=== PATIENT | female | born 1970 | race Caucasian/White ===

== ENCOUNTER → 2019-05-14 11:14 | Outpatient (CLI) | payer BC, SELFPAY ==
--- NOTE | 2019-05-14 12:38 | PM.TREADMILL ---
Cardiac Stress Test Report Referral & Results Date Patient Seen: 05/14/19 Requesting provider: My Leonardo Indication: Chest pain Rest ECG: Unremarkable Procedure Note: Today following both written and verbal informed consent, the patient was exercised according to a standard Lei protocol. The patient exercised for a total of 4 minutes 21 seconds achieving a maximum heart rate of 168. Patient's maximum systolic blood pressure was 140. This was an estimated 7.0 MET's. There are no ST-T segment changes Normal blood pressure response the patient quickly tachycardic and remained tachycardic willing to recovery Functional week impairment rates about 30% on the sedentary scale Impression: No evidence of ischemia Tachycardic with activity as above Limited exercise capacity as above Please note: Actual ECG tracings can be found in the PACS system.
== END ==
PROVIDERS: PCP Nurse Practitioner; Visit Provider Nurse Practitioner
DX: R07.89 Other chest pain (principal); R00.0 Tachycardia, unspecified
CPT/HCPCS: 93016; 93017; 93018

== ENCOUNTER → 2020-04-09 14:17 | Outpatient (CLI) | payer OTHER, SELFPAY ==
[2020-04-09 16:22] LABS: TSH w/ Reflex to FT4 1.39 uIU/mL (0.47-4.68)
== END ==
PROVIDERS: PCP Nurse Practitioner; Referring Provider Student in an Organized Health Care Education/Training Program; Visit Provider Student in an Organized Health Care Education/Training Program
DX: R10.9 Unspecified abdominal pain (principal); R93.5 Abnormal findings on diagnostic imaging of other abdominal regions, including retroperitoneum; R19.7 Diarrhea, unspecified
CPT/HCPCS: 36415; 84443

== ENCOUNTER → 2020-07-01 08:35 | Outpatient (CLI) | payer OTHER, SELFPAY ==
[2020-07-01 10:29] LABS: COVID19 -Nasal RAPID Negative (Negative)
== END ==
PROVIDERS: PCP Nurse Practitioner; Visit Provider Physician Assistant
DX: Z11.59 Encounter for screening for other viral diseases (principal)
CPT/HCPCS: 87635

== ENCOUNTER → 2021-02-19 12:14 | Outpatient (CLI) | payer OTHER, SELFPAY ==
--- NOTE | 2021-02-19 | DI.RAD.S_ITS ---
PROCEDURE: XR FOOT RT MIN 3V INDICATIONS: right foot pain TECHNIQUE: 3 views of the foot were acquired. COMPARISON: None. FINDINGS: Bones: No acute fracture. Plantar calcaneal spur Mild 1st MTP joint degeneration. Soft tissues: No tibiotalar joint effusion. Achilles tendon appears normal. IMPRESSION: Chronic degenerative changes as above. Dictated by: Eladio Ballard M.D. on 02/19/2021 at 14:33 Approved by: Eladio Ballard M.D. on 02/19/2021 at 14:35
== END ==
LOC: RAD 12:15
PROVIDERS: PCP Nurse Practitioner; Referring Provider Pain Medicine Pain Medicine; Visit Provider Pain Medicine Pain Medicine
DX: M79.671 Pain in right foot (principal); M77.31 Calcaneal spur, right foot
CPT/HCPCS: 73630

== ENCOUNTER → 2022-02-23 07:21 | Outpatient (CLI) | payer OTHER, SELFPAY ==
--- NOTE | 2022-02-23 07:23 | DI.RAD.S_ITS ---
PROCEDURE: XR LUMBAR SPINE MIN 4V INDICATIONS: chronic low back pain TECHNIQUE: 5 views of the lumbar spine were acquired, including bilateral oblique views. COMPARISON: None. FINDINGS: Bones: 5 nonrib-bearing vertebrae are present. There is normal bony alignment. No vertebral body compression fractures. No suspicious bony lesions. The disc heights are well preserved. Lower lumbar spine facet arthropathy is seen. Soft tissues: Overlying bowel gas pattern is normal. No suspicious soft tissue calcifications. Oblique images: No pars defects. IMPRESSION: Normal plain films for age, with mild lower lumbar spine facet arthropathy. If it would be helpful for clinical management decision making, please consider a dedicated, scheduled lumbar spine MRI for further evaluation (assuming that there is no contraindication). Dictated by: Ever Murray M.D. on 02/23/2022 at 9:58 Approved by: Ever Murray M.D. on 02/23/2022 at 10:02
[2022-02-23 08:08] LABS: Add Manual Diff / Slide Review NO; Basophils Absolute Auto 100 /uL (0-100); Basophils Percent Auto 0.7 % (0-2); Eosinophils Absolute Auto 200 /uL (0-450); Eosinophils Percent Auto 2.1 % (2-4); Hematocrit 38.9 % (36-46); Lymphocytes Absolute Auto 2600 /uL (1100-4500); Lymphocytes Percent Auto 33.7 % (25-40); Mean Corpuscular HGB Conc 33.5 % (30-36); Mean Corpuscular Hemoglobin 30.3 PG (26-34); Mean Corpuscular Volume 90.6 fL (80-100); Monocytes Absolute Auto 500 /uL (0-900); Monocytes Percent Auto 7.1 % (3-14); Neutrophils Absolute Auto 4300 /uL (1500-7000); Neutrophils Percent Auto 56.4 % (50-75); Platelet Count 335 X10^3/uL (150-400); Red Blood Cell Count 4.29 X10^6/uL (4.0-5.2); Red Cell Distribution Width 13.1 % (11.6-14.8); White Blood Cell Count 7.6 X10^3/uL (4.5-11.0)
[2022-02-23 08:40] LABS: Alanine Aminotransferase 16 IU/L (<35); Albumin Globulin Ratio 1.4 (1.0-2.8); Alkaline Phosphatase 79 U/L (38-126); Aspartate Aminotransferase 25 IU/L (14-36); BUN Creatinine Ratio 22.8 (6-22); Bilirubin Total 0.3 mg/dL (0.2-1.3); Blood Urea Nitrogen 13 mg/dL (7-17); Calcium 8.9 mg/dL (8.4-10.2); Carbon Dioxide 30 mmol/L (22-32); Chloride 104 mmol/L (98-107); Cholesterol 217 mg/dL (140-199); Estimated Glomerular Filt Rate > 60 mL/min (>60); Globulin 2.8 g/dL (1.7-4.1); Glucose 98 mg/dL (70-100); HDL Cholesterol 57 mg/dL (40-60); HEMOLYSIS < 15 (0-50); LDL Cholesterol Calculated 144 mg/dL (<100); Potassium 4.3 mmol/L (3.4-5.1); Sodium 140 mmol/L (137-145); Total Protein 6.8 g/dL (6.3-8.2); Triglycerides 78 mg/dL (35-150)
[2022-02-23 08:58] LABS: TSH w/ Reflex to FT4 1.93 uIU/mL (0.47-4.68)
[2022-02-24 20:04] LABS: Hep C Virus Ab w/Reflex Quant NEGATIVE s/c (NEGATIVE)
[2022-02-25 21:52] LABS: Estrogen 111 pg/mL (.)
[2022-03-02 17:56] LABS: Free Progesterone 2.1 ng/dL (.); Progesterone, Serum 71 ng/dL (.)
== END ==
PROVIDERS: PCP Family Medicine; Referring Provider Family Medicine; Visit Provider Family Medicine
DX: C53.9 Malignant neoplasm of cervix uteri, unspecified (principal); M54.50 Low back pain, unspecified; K57.90 Diverticulosis of intestine, part unspecified, without perforation or abscess without bleeding; M06.00 Rheumatoid arthritis without rheumatoid factor, unspecified site; G89.29 Other chronic pain; Z90.710 Acquired absence of both cervix and uterus
CPT/HCPCS: 36415; 72110; 80053; 80061; 82672; 84144; 84443; 84999; 85025; 86803

== ENCOUNTER → 2022-03-02 08:58 | Outpatient (CLI) | payer OTHER, SELFPAY ==
--- NOTE | 2022-03-02 08:59 | DI.US.S_ITS ---
PROCEDURE: US PELVIC COMPLETE INDICATIONS: abnormal ovary, s/p cervical cancer and partial hysterectomy TECHNIQUE: Real-time scanning was performed of the pelvic organs, with image documentation. Additional endovaginal scanning was necessary due to incomplete visualization of the adnexal and endometrial structures by transabdominal scanning. COMPARISON: None. FINDINGS: Uterus: Uterus is surgically absent. No gross abnormality is seen in vaginal cuff region. Ovaries: Right ovary is not visualized. 3.1 x 1.3 x 1 cm hypoechoic and solid appearing structure in left adnexa is seen which may represent left ovary and show no gross abnormality. IMPRESSION: 1. Prior hysterectomy, no gross abnormality is seen in vaginal cuff region. 2. Right ovary is not visualized. Possible left ovary as above and show no gross abnormality. If indicated, MRI of pelvis can be done for further evaluation . We strive to produce accurate, complete, and clear reports of imaging services. To assist us in improving patient care, this report was composed using standard report templates and voice recognition software. Therefore, it may contain abnormal punctuation, insertions and/or omissions. Occasional wrong-word or sound-alike substitutions may occur. Though we review the report and make efforts to correct it, we do recommend that the report be read carefully in proper context to recognize any text inaccuracies. Dictated by: Cornel Martinez M.D. on 03/02/2022 at 11:31 Approved by: Cornel Martinez M.D. on 03/02/2022 at 11:36
== END ==
LOC: US 08:59
PROVIDERS: PCP Family Medicine; Referring Provider Family Medicine; Visit Provider Family Medicine
DX: Q50.39 Other congenital malformation of ovary (principal); Z85.41 Personal history of malignant neoplasm of cervix uteri
CPT/HCPCS: 76830; 76856

== ENCOUNTER → 2023-09-05 17:16 | Outpatient (CLI) | payer OTHER, SELFPAY ==
[2023-09-05 17:57] LABS: Appearance Urine UA CLEAR; Bilirubin Urine UA NEGATIVE (NEGATIVE); Color Urine UA YELLOW; Glucose Urine UA NEGATIVE (Negative); Ketones Urine UA 3+ (NEGATIVE); Leukocyte Esterase Urine UA NEGATIVE (NEGATIVE); Nitrite Urine UA POSITIVE (Negative); Occult Blood Urine UA 2+ (Negative); Protein Urine UA NEGATIVE (Negative); Specific Gravity Urine UA 1.025 (1.000-1.035); Urobilinogen Urine UA 0.2 E.U./dL (0.2); pH Urine UA 5.5 (4.5-8.0)
[2023-09-05 18:07] LABS: Bacteria Urine Many (>30); Culture Indicated Urine Specimen Cultured; Mucus Urine 2+ (Negative); RBC Urine 0-1/HPF (0-5/HPF); Squamous Epithelial Cell Urine 1-5 /HPF (0-5/HPF); Urine Volume 10mL (spun); WBC Urine 0-1/HPF (0-5/HPF)
[2023-09-05 18:09] LABS: Add Manual Diff / Slide Review NO; Basophils Absolute Auto 0 /uL (0-100); Basophils Percent Auto 0.4 % (0-2); Eosinophils Absolute Auto 100 /uL (0-450); Eosinophils Percent Auto 1.3 % (2-4); Hematocrit 41.4 % (36-46); Hemoglobin 13.9 g/dL (12.0-16.0); Lymphocytes Absolute Auto 3000 /uL (1100-4500); Lymphocytes Percent Auto 35.3 % (25-40); Mean Corpuscular HGB Conc 33.6 % (30-36); Mean Corpuscular Hemoglobin 30.6 PG (26-34); Mean Corpuscular Volume 91.1 fL (80-100); Monocytes Absolute Auto 400 /uL (0-900); Monocytes Percent Auto 5.2 % (3-14); Neutrophils Absolute Auto 5000 /uL (1500-7000); Neutrophils Percent Auto 57.8 % (50-75); Platelet Count 307 X10^3/uL (150-400); Red Blood Cell Count 4.54 X10^6/uL (4.0-5.2); White Blood Cell Count 8.6 X10^3/uL (4.5-11.0)
[2023-09-05 18:27] LABS: HEMOLYSIS < 15 (0-50); Iron 102 ug/dL (37-170)
[2023-09-05 18:29] LABS: Alanine Aminotransferase 15 IU/L (<35); Albumin 4.3 g/dL (3.5-5.0); Albumin Globulin Ratio 1.3 (1.0-2.8); Alkaline Phosphatase 73 U/L (38-126); Aspartate Aminotransferase 25 IU/L (14-36); BUN Creatinine Ratio 27.1 (6-22); Bilirubin Total 0.6 mg/dL (0.2-1.3); Blood Urea Nitrogen 13 mg/dL (7-17); Calcium 9.2 mg/dL (8.4-10.2); Carbon Dioxide 26 mmol/L (22-32); Chloride 103 mmol/L (98-107); Estimated Glomerular Filt Rate > 60 mL/min (>60); Globulin 3.4 g/dL (1.7-4.1); Glucose 83 mg/dL (70-100); HEMOLYSIS < 15 (0-50); Potassium 4.2 mmol/L (3.4-5.1); Sodium 139 mmol/L (137-145); Total Protein 7.7 g/dL (6.3-8.2)
[2023-09-05 18:39] LABS: Percent Iron Saturation 35 % (15-50); Total Iron Binding Capacity 294 ug/dL (265-497); Transferrin 271 mg/dL (206-381)
[2023-09-05 18:45] LABS: Vitamin D 25 Hydroxy (D3) < 12.8 ng/mL (30.0-100.0)
[2023-09-05 19:02] LABS: Ferritin 47 ng/mL (11-264); TSH w/ Reflex to FT4 1.56 uIU/mL (0.47-4.68)
[2023-09-05 19:16] LABS: Vitamin B12 672 pg/mL (239-931)
[2023-09-07 18:53] LABS: Hep C Virus Ab w/Reflex Quant NEGATIVE s/c (NEGATIVE)
== END ==
PROVIDERS: PCP Family Medicine; Referring Provider Physician Assistant; Visit Provider Physician Assistant
DX: K74.60 Unspecified cirrhosis of liver (principal); R10.84 Generalized abdominal pain; R11.2 Nausea with vomiting, unspecified; R63.4 Abnormal weight loss; E55.9 Vitamin D deficiency, unspecified; E53.8 Deficiency of other specified B group vitamins; R53.83 Other fatigue; Z11.59 Encounter for screening for other viral diseases
CPT/HCPCS: 36415; 80053; 81001; 82306; 82607; 82728; 83540; 83550; 84443; 85025; 86803; 87077; 87086; 87186

== ENCOUNTER → 2023-09-18 15:00 | Outpatient (CLI) | payer OTHER, SELFPAY ==
--- NOTE | 2023-09-18 15:01 | DI.US.S_ITS ---
PROCEDURE: US ABDOMEN COMPLETE INDICATIONS: WEIGHT LOSS; NAUSEA/VOMITING; ABDOMINAL PAIN TECHNIQUE: Real-time scanning was performed of the abdominal and retroperitoneal organs, with image documentation. COMPARISON: None. FINDINGS: Liver: Liver is normal in size and homogeneous in echotexture. Gallbladder: Sonolucent without evidence cholelithiasis, gallbladder wall thickening or pericholecystic fluid. No sonographic Bishop sign. Biliary ducts: Intrahepatic bile ducts are non-dilated. Extrahepatic bile duct caliber measures 4.7 mm. Normal is 6-7 mm or less in diameter, or 10 mm or less post-cholecystectomy. Pancreas: Visualized portions of the pancreas are sonographically normal. Spleen: Spleen is normal in size and homogeneous in echotexture. Kidneys: Kidneys are normal in size and echotexture. Mild right renal pyloric iliacus without rachel hydronephrosis. Multiple left renal simple cysts measure up to 5 mm Aorta: Visualized aorta is normal in caliber at less than 3 cm. Iliacs: Proximal common iliac arteries are normal in caliber at less than 2.5 cm. IVC: Intrahepatic inferior vena cava is patent. Miscellaneous: No free abdominal fluid. IMPRESSION: Mildly prominent right renal collecting system without gross hydronephrosis or shadowing calculi Approved by: Diego Leyva M.D. on 09/18/2023 at 19:50
--- NOTE | 2023-09-18 15:01 | DI.US.S_ITS ---
PROCEDURE: US PELVIC COMPLETE INDICATIONS: FOLLOW UP LEFT ADNEXA OVARY VERSUS OTHER. HYSTERECTOMY. TECHNIQUE: Real-time scanning was performed of the pelvic organs, with image documentation. Additional endovaginal scanning was necessary due to incomplete visualization of the adnexal and endometrial structures by transabdominal scanning. COMPARISON: [facility], , US PELVIC COMPLETE, 03/02/2022, 9:05. FINDINGS: Uterus: Status post hysterectomy Ovaries: Neither ovary is visualized on this examination. On the prior study, there was a questionable left ovary seen in the region of the left adnexa. No suspicious pelvic lesions identified. Other: No pathologic free abdominal or pelvic fluid. IMPRESSION: Status post hysterectomy. The ovaries are not seen on either side. Previously described possible left ovary is not identified on today's examination. Consider further evaluation with pelvic MRI to confirm. We strive to produce accurate, complete, and clear reports of imaging services. To assist us in improving patient care, this report was composed using standard report templates and voice recognition software. Therefore, it may contain abnormal punctuation, insertions and/or omissions. Occasional wrong-word or sound-alike substitutions may occur. Though we review the report and make efforts to correct it, we do recommend that the report be read carefully in proper context to recognize any text inaccuracies. Dictated by: Dylan Mcnulty M.D. on 09/18/2023 at 18:32 Approved by: Dylan Mcnulty M.D. on 09/18/2023 at 18:38
== END ==
LOC: US 15:01
PROVIDERS: PCP Family Medicine; Referring Provider Physician Assistant; Visit Provider Physician Assistant
DX: R10.84 Generalized abdominal pain (principal); R11.2 Nausea with vomiting, unspecified; R63.4 Abnormal weight loss; K74.60 Unspecified cirrhosis of liver; Z90.710 Acquired absence of both cervix and uterus
CPT/HCPCS: 76700; 76830; 76856

== ENCOUNTER → 2023-09-19 15:15 | Outpatient (CLI) | payer OTHER, SELFPAY ==
[2023-09-19 19:41] LABS: Bacteria Urine Occasional (0-1); Culture Indicated Urine Cult Not Indicated; RBC Urine 0-1/HPF (0-5/HPF); Squamous Epithelial Cell Urine 0-1 /HPF (0-5/HPF); Urine Volume 10mL (spun); WBC Urine 0-1/HPF (0-5/HPF)
== END ==
PROVIDERS: PCP Family Medicine; Visit Provider Physician Assistant
DX: N39.0 Urinary tract infection, site not specified (principal)
CPT/HCPCS: 81015

== ENCOUNTER 2023-11-06 07:27 | Day surgery (SDC) | payer OTHER, SELFPAY ==
[2023-11-06] VITALS (8 sets, daily range): BP systolic 89–128; BP diastolic 54–88; PULSE 76–88; RESP 10–17; TEMP 36.1–36.6; O2SAT 97–100
--- NOTE | 2023-11-06 | PATH_ITS ---
[facility] Accession Number: [id number] No. of containers..04 Tissue . 01 Material submitted: . PART A: duodenum - DUODENUM PART B: gastrointestinal site - ANTRUM PART C: esophagus, E-G Junction - GE JUNCTION PART D: colon - TRANSVERSE COLON . 01 Diagnosis: A. DUODENUM, BIOPSY: Duodenal mucosa with no diagnostic abnormality. Negative for active inflammation, features of sprue, dysplasia, or malignancy. . B. STOMACH, ANTRUM, BIOPSY: Antral mucosa with mild chronic gastritis. Negative for Helicobacter by immunohistochemistry. Negative for intestinal metaplasia. Negative for dysplasia and malignancy. . C. GASTROESOPHAGEAL JUNCTION, BIOPSY: Squamocolumnar junctional mucosa with specialized intestinal metaplasia, consistent with Friedman's esophagus. Negative for dysplasia and malignancy. . D. TRANSVERSE COLON, BIOPSY: Consistent with inflammatory polyp. Negative for dysplasia and malignancy. [facility] 11/13/2023 [facility]2 Local . 01 Electronically signed: . Afua Arana MD, Pathologist NPI- [id number] . 01 Gross description: . Part A: DUODENUM: Received in formalin are 4 fragment(s) of roldan, soft tissue measuring 0.1 x 0.1 x 0.1 cm to 0.3 x 0.3 x 0.2 cm submitted entirely in 1 cassette(s) Part B: ANTRUM: Received in formalin are 3 fragment(s) of roldan, soft tissue measuring 0.1 x 0.1 x 0.1 cm to 0.4 x 0.2 x 0.2 cm submitted entirely in 1 cassette(s) Part C: GE JUNCTION: Received in formalin are 3 fragment(s) of roldan, soft tissue measuring 0.1 x 0.1 x 0.1 cm to 0.3 x 0.3 x 0.2 cm submitted entirely in 1 cassette(s) Part D: TRANSVERSE COLON: Received in formalin is 1 fragment(s) of roldan, soft tissue measuring 0.6 x 0.3 x 0.3 cm submitted entirely in 1 cassette(s) /DB 11/08/2023 1859 Local . 01 Microscopic: . B. An immunohistochemical stain was performed to evaluate for Helicobacter organisms and is negative. The control stain showed appropriate reactivity. . * This test was developed and its performance characteristics determined by [facility]. It has not been cleared or approved by the U.S. Food and Drug Administration. The FDA has determined that such clearance or approval is not necessary. This test is used for clinical purposes. It should not be regarded as investigational or for research. . 01 Pathologist provided ICD-10: K22.70 . 01 CPT . 855257, 643772, 486057, 097998, [id number] Specimen Comment: A courtesy copy of this report has been sent to [phone] Performed at: 01 [facility] [address] [place] [address], [place], [place] [id number] MD Brendan Carmichael MD Phone: [phone]
[2023-11-06] MEDS: LACTATED RINGERS 1,000 ML 42 ML IV (08:18)
--- NOTE | 2023-11-06 08:51 | P.HP_ITS ---
History of Present Illness History of Present Illness Date Patient Seen: 11/06/23 Time Patient Seen: 08:51 Chief complaint: EGD & Colonoscopy Narrative: Jacquie is a 53-year-old woman who presents with dysphagia and family history of colon cancer. See office note from September for details. [facility] Medical History Osteoarthritis Sleep apnea Asthma Restless leg syndrome Migraines (~1982) Osteopenia (~2018) Foot pain (~2019) Fibromyalgia (~2020) Ankle pain (~2019) Anemia (~1991) Liver disease Irritable bowel syndrome GERD (gastroesophageal reflux disease) Gastric ulcer (~1982) Colon polyps (~2020) Cirrhosis (~2019) Cervical cancer (~1987) Chronic low back pain (~1999) Seronegative rheumatoid arthritis Diverticulosis (~2020) Surgical History Anesthesia History of hysterectomy for cancer (~1999) Family History Father Cancer Mother Cancer Social History Smoking Status: Never smoker alcohol intake: never Meds Home Medications and Allergies Home Medications Medication Instructions Recorded Confirmed Type cholecalciferol (vitamin D3) 25 25 mcg PO DAILY 09/19/23 11/06/23 History mcg (1,000 unit) capsule omeprazole 40 mg capsule,delayed 40 mg PO DAILY #30 caps 09/19/23 11/06/23 Rx release sucralfate 1 gram tablet (Carafate) 1 g PO QACHS #120 tabs 09/19/23 11/06/23 Rx gabapentin 300 mg capsule 300 mg PO BEDTIME #90 caps 10/10/23 11/06/23 Rx methocarbamol 500 mg tablet 500 mg PO TID PRN muscle spasm #60 10/10/23 11/06/23 Rx tabs sumatriptan succinate 100 mg 100 mg PO PRN PRN migraine 10/10/23 11/06/23 Rx tablet (Imitrex) headache #30 tabs amitriptyline 10 mg tablet 10 mg PO BEDTIME #90 tabs 10/13/23 11/06/23 Rx pramipexole 0.25 mg tablet 0.25 mg PO BEDTIME #90 tabs 10/13/23 11/06/23 Rx peg 3350-sod sulf,knenw-dkr-nee 1,000 ml PO DIRECTED #2,000 mL 10/23/23 Rx 178.7-7.3-0.5-1.12-0.9 gram oral soln (Suflave) Allergies Allergy/AdvReac Type Severity Reaction Status Date / Time Sulfa (Sulfonamide Allergy Severe Swelling Verified 11/06/23 07:57 Antibiotics) of Lip/Tongue/Throat nitrofurantoin AdvReac Intermediate Nausea Verified 11/06/23 07:57 Exam Vital Signs (past 8 hours): - 11/06/23 07:58 Temperature 97.8 F Pulse Rate 79 Respiratory Rate 16 Blood Pressure 123/77 Pulse Oximetry 97 Oxygen Delivery Method Room Air Oxygen Delivery Method Room Air Const General: No acute distress Resp Effort & Inspection: normal respiratory effort Assessment & Plan Assessment and plan (1) Family history of colon cancer: Status: Acute (2) Personal history of colonic polyps: Status: Acute (3) Dysphagia: Qualifiers: Dysphagia type: esophageal phase Qualified Code(s): R13.19 - Other dysphagia Status: Acute Plan Reviewed the risks and benefits of EGD and colonoscopy and she would like to proceed.
--- NOTE | 2023-11-06 09:27 | PM.OP.EC ---
Operative Date/Time/Diagnoses Date of procedure: 11/06/23 Time of procedure: 09:27 Pre-op diagnosis: Dysphagia and family history of colon cancer Post-op diagnosis: same Procedure & Clinicians Study performed: EGD and colonoscopy Same procedure as scheduled: Yes Surgeon: Fredrick Nieves Procedure Notes Procedure in detail: Surgeon: Fredrick Nieves MD Anesthesia: Lyndsay Smith CRNA Procedure in detail: A timeout was performed. A bite blocked was placed and monitors were attached to the patient. The patient was positioned in the left lateral decubitus position. Sedation was administered. Once the patient was sedated the endoscope was inserted through the bite block and passed through the esophagus and stomach and into the duodenum. There was mild duodenitis and random biopsies were taken from the duodenum with cold forceps. We then withdrew the scope into the stomach. There was moderate antritis and random biopsies were taken from the antrum with cold forceps. The endoscope was retroflexed and no hiatal hernia was seen. The endoscope was straightned and withdrawn into the esophagus. There was moderate inflammation at the GE junction and biopsies were taken with cold forceps from the GE junction. EGD findings: Mild duodenitis, moderate antritis and moderate esophagitis at the GE junction Next we repositioned the patient for a colonoscopy. A digital rectal exam was performed and was normal. The colonoscope was inserted and advanced to the cecum. The appendiceal orifice was identified and photographed. The scope was slowly withdrawn over greater than 6 minutes. There was a 7 mm polyp in the transverse colon removed with a cold snare. The scope was retroflexed in the rectum and no other abnormalities were found. Colonoscopy findings: 7 mm polyp in the transverse colon Total procedural EBL: 10 mL Scope withdrawal time: 9 minutes Sedation minutes: 23 minutes Post-procedure Disposition: PACU
== END 2023-11-06 10:22 | disposition home or self-care (01) ==
PROVIDERS: PCP Family Medicine; Referring Provider Surgery; Visit Provider Surgery
PROC: 0DJ08ZZ Inspection of Upper Intestinal Tract, Via Natural or Artificial Opening Endoscopic (ICD-10-PCS; CPT 43235; principal; 2023-11-06 08:45)
PROC: 0DJD8ZZ Inspection of Lower Intestinal Tract, Via Natural or Artificial Opening Endoscopic (ICD-10-PCS; CPT 45378; 2023-11-06 08:45)
DX: Z12.11 Encounter for screening for malignant neoplasm of colon (principal); Z80.0 Family history of malignant neoplasm of digestive organs; R13.10 Dysphagia, unspecified; K20.90 Esophagitis, unspecified without bleeding; K29.50 Unspecified chronic gastritis without bleeding; K29.80 Duodenitis without bleeding; K22.70 Barrett's esophagus without dysplasia; K63.5 Polyp of colon
CPT/HCPCS: 45385; 43239; J2704

== ENCOUNTER → 2023-12-05 15:45 | Outpatient (CLI) | payer OTHER, SELFPAY | PROVIDERS: PCP Family Medicine; Visit Provider Family Medicine | DX: R30.0 Dysuria (principal) | CPT/HCPCS: 87086 ==

== ENCOUNTER → 2023-12-05 16:33 | Outpatient (CLI) | payer OTHER, SELFPAY ==
[2023-12-05 17:19] LABS: Add Manual Diff / Slide Review NO; Basophils Absolute Auto 0 /uL (0-100); Basophils Percent Auto 0.5 % (0-2); Eosinophils Absolute Auto 100 /uL (0-450); Eosinophils Percent Auto 1.1 % (2-4); Hematocrit 37.3 % (36-46); Hemoglobin 12.9 g/dL (12.0-16.0); Lymphocytes Absolute Auto 2600 /uL (1100-4500); Mean Corpuscular HGB Conc 34.6 % (30-36); Mean Corpuscular Volume 92.3 fL (80-100); Monocytes Absolute Auto 400 /uL (0-900); Monocytes Percent Auto 5.9 % (3-14); Neutrophils Absolute Auto 4100 /uL (1500-7000); Neutrophils Percent Auto 56.5 % (50-75); Platelet Count 306 X10^3/uL (150-400); Red Blood Cell Count 4.04 X10^6/uL (4.0-5.2); White Blood Cell Count 7.3 X10^3/uL (4.5-11.0)
[2023-12-05 17:54] LABS: Alanine Aminotransferase 13 IU/L (<35); Albumin 4.3 g/dL (3.5-5.0); Albumin Globulin Ratio 1.4 (1.0-2.8); Alkaline Phosphatase 66 U/L (38-126); Aspartate Aminotransferase 22 IU/L (14-36); BUN Creatinine Ratio 18.8 (6-22); Bilirubin Total 0.4 mg/dL (0.2-1.3); Blood Urea Nitrogen 13 mg/dL (7-17); C-Reactive Protein Quant 0.7 mg/dL (<1.0); Calcium 9.3 mg/dL (8.4-10.2); Carbon Dioxide 32 mmol/L (22-32); Chloride 106 mmol/L (98-107); Estimated Glomerular Filt Rate > 60 mL/min (>60); Glucose 90 mg/dL (70-100); HEMOLYSIS < 15 (0-50); Potassium 4.2 mmol/L (3.4-5.1); Sodium 142 mmol/L (137-145); Total Protein 7.3 g/dL (6.3-8.2)
[2023-12-05 18:41] LABS: Erythrocyte Sedimentation Rate 25 MM/HR (0-20)
[2023-12-05 18:51] LABS: Vitamin D 25 Hydroxy (D3) 15.7 ng/mL (30.0-100.0)
== END ==
PROVIDERS: PCP Family Medicine; Referring Provider Family Medicine; Visit Provider Family Medicine
DX: K22.70 Barrett's esophagus without dysplasia (principal); R13.10 Dysphagia, unspecified; E55.9 Vitamin D deficiency, unspecified; M79.7 Fibromyalgia; R30.0 Dysuria
CPT/HCPCS: 36415; 80053; 82306; 85025; 85651; 86038; 86140; 87086

== ENCOUNTER → 2023-12-20 09:27 | Outpatient (CLI) | payer OTHER, SELFPAY ==
--- NOTE | 2023-12-20 09:28 | DI.RAD.S_ITS ---
PROCEDURE: FL BARIUM SWALLOW W SPEECH INDICATIONS: Dysphagia, history of barretts esophagus COMPARISON: None. TECHNIQUE: Examination was conducted in conjunction with speech pathology per standard protocol. In the lateral projection, filming was performed of the patient swallowing. AP projection filming may also be performed with patient swallowing. COMPARISON: FINDINGS: Function: The oral preparatory phase appears normal, with proper containment. The subsequent oral propulsive phase, pharyngeal phase, and esophageal phase of swallowing also appear normal with all proffered substances. No laryngotracheal penetration or aspiration. No pathologic vallecular pooling. Morphology: No cricopharyngeal bar is identified. No cervical esophageal webs. No Zenker's diverticulum. No strictures. Calibrated barium tablet passes through the esophagus. Minimal delay at the aortic arch and distal esophagus. No esophageal dysmotility identified in the upright position. IMPRESSION: 1. No aspiration or laryngotracheal penetration. Please see separately dictated speech pathologist's report. 2. No significant delay of passage of the barium tablet. No gross esophageal dysmotility in the upright position. Dictated by: Arthur Schmitz M.D. on 12/20/2023 at 10:32 Approved by: Arthur Schmitz M.D. on 12/20/2023 at 10:34
--- NOTE | 2023-12-20 12:30 | ST.SWALLOW ---
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 Mariee. Pt had recently undergone EGD () with results indicating mild duodenitis, moderate antrisis and moderate esophagitis at the GE junction . Her PMH included Friedman's esophagus, GERD. Pt described difficulty swallowing anything other than soups and liquids. She reported that solid foods with get stuck and she regurgitates undigested foods. Additionally, she noted if she tries to wash the stuck food down with water, she will regurgitate the water with the solid. She described her emesis as greenish with bile and solid foods. She reported her gall bladder was full of sludge. Subjective Observations Pt appeared to be anxious during the MBSS. She was seated in the fluoroscopy chair with directions and procedures described for her. She stated she had a test previously that required barium and thought she would vomit during the assessment. Patient Positioning Position View Lat-A/P Imaging Lateral View Textures Administered Trials Presented Thin Liquid via Spoon (IDDSI 0 ),Thin Liquid via Cup (IDDSI 0 ),Extremely Thick Liquid via Spoon (IDDSI 4),Regular (IDDSI 7) Barium Tablet Yes The IDDSI Framework Protocol: IDDSI.1 Oral Impairment Source: The Modified Barium Swallow Impairment Profile (MBSImP??) Lip Closure No labial escape Tongue Control During Bolus Hold Cohesive bolus between tongue to palatal seal Bolus Preparation/Mastication Timely & efficient chewing & mashing Bolus Transport/Lingual Motion Brisk tongue motion Oral Residue Complete oral clearance Initiation of Pharyngeal Swallow Bolus head at posterior angle of ramus (first hyoid excursion) Additional Oral Impairment Observations OME and DKS were observed to be WNL. Mastication observed with rotary chew pattern. Good bolus formation, control and AP transition. Pharyngeal Impairment Source: The Modified Barium Swallow Impairment Profile (MBSImP??) Soft Palate Elevation No bolus between soft palate & pharyngeal wall Laryngeal Elevation Comp.sup.move.thyroid cart.w/ comp.approx.arytenoids to epiglot petiole Anterior Hyoid Excursion Partial anterior movement Epiglottic Movement Complete inversion Laryngeal Vestibular Closure Complete; no air/contrast in laryngeal vestibule Pharyngeal Stripping Wave Present - complete Pharyngoesophageal Segment Opening Complete distention & complete duration; no obstruction of flow Tongue Base Retraction Trace column of contrast/air betwn tongue base & post. pharyngeal wall Pharyngeal Residue Complete pharyngeal clearance Additional Pharyngeal Impairment Pharyngeal phase of pt's Observations swallow was observed to be WNL . A/P View Textures Administered The IDDSI Framework Protocol: IDDSI.1 A/P View Observations Pharyngeal Contraction Complete Esophageal Function Stasis Additional A-P Observations Initial AP observation noted esophagus had emptied completely. Barium tablet was observed to initially pause after entering the esophagus. Additionally the tablet paused at the GE junction before entering the stomach. Clinical Impressions Dysphagia Type WNL Patient Appropriate for Therapy No Recommendations Treatment Plan Additional Recommended Referrals Pt c/o vomiting bile with food/liquid. Recommend assessment as indicated Additional Recommendations/Comments No ST indicated
== END ==
PROVIDERS: PCP Family Medicine; Referring Provider Family Medicine; Visit Provider Family Medicine
DX: K22.70 Barrett's esophagus without dysplasia (principal); R13.19 Other dysphagia; R47.02 Dysphasia; Z68.26 Body mass index [BMI] 26.0-26.9, adult; E43 Unspecified severe protein-calorie malnutrition; Z71.3 Dietary counseling and surveillance
CPT/HCPCS: 74230; 92611; 97802

== ENCOUNTER → 2023-12-20 12:29 | Outpatient (CLI) | payer OTHER, SELFPAY ==
--- NOTE | 2023-12-20 12:45 | DIET.OUTPTC ---
Dietary Outpatient Consultation Note Consultation Date: 12/20/2023 Assessment: 53 y F referred for dietitian for Friedman's esophagus w/o dysplasia, dysphagia. Pt dx with malnutrition during session, dx below. Jacquie reports a significant decrease in po intake starting Aug 18 this year due to her symptoms resulting in a 37 lb loss. Symptoms consist of reflux, emesis after eating, food feeling stuck, difficulty swallowing solids. Modified Barium Swallow study resulted in no findings. Pt reports no specific diet recc by [facility]. Has lingering affects from COVID -reduced smell and dislike of previously liked foods, i.e. pb. Does not eat dairy products Diet recall: B- 200 kcal energy drink D- when home from work - after 10p- 3/4 can of soup remains up right until bed at 1:30a Total intake: 500-600 kcals Does not eat in morning d/t food resulting in throwing up at work. Foods best tolerate fall along a minced and moist type diet w/ thinner liquids. She reports needing to coat foods in copious sauces or liquids to get them down. 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 Nutrition focused physical exam performed: Muscle wasting: -Moderate loss temporalis -Mild loss clavicle and scapula region -Mild loss interosseous region Subcutaneous fat loss: -Moderate loss orbital fat pads -Mild loss buccal fat pads Ht: 4 ft 11 in (150 cm) Wt: 129 lb and 8 oz (58.74 kg) BMI: 26.2 Weight History: 12/05/23: 58.74 kg (9.4% weight loss in 3 months, severe) 09/05/23: 65.487 kg Labs: Vitamin D deficiency, taking supplement Nutrition Diagnosis: Severe Acute Protein Calorie Malnutrition r/t altercations of the GI tract as evidenced by mild to moderate muscle wasting (temporalis, deltoid, trapezius, pectoralis major, supraspinatus, infraspinatus, rhomboid muscles, interosseous) and mild to moderate subcutaneous fat loss (orbital and buccal fat pads), 9% weight loss in 3 months, severe, and <50% of estimated energy intake per diet recall for 4 months, severe. Interventions: 1. Increased energy-protein intake w/ food texture modifications for tolerance -Discussed: energy-protein dense foods/drinks patient would be able to tolerate, supplementing soups with additional energy-protein, findings from NFPE -Provided nutrition therapy for Friedman's esophagus Goals: 1. Plant based ONS BID 2. Trial of oatmeal at breakfast 3. Added calories/protein to soup with additional grains/starchy vegs, lean meats, or protein rich broths EER: [id number] kcals (MSJ x1.2-1.3) 75-85 g protein (1.25-1.5 g/kg per malnutrition) Monitoring/Evaluations: diet recall, weight, NFPE, labs F/u in 1 month Electronically Signed by: Temi Santacruz 12/20/23 12:45 Clinical Dietitian [address] [id number]
== END ==
PROVIDERS: PCP Family Medicine; Referring Provider Family Medicine
DX: K22.70 Barrett's esophagus without dysplasia (principal); R47.02 Dysphasia; E43 Unspecified severe protein-calorie malnutrition; Z68.26 Body mass index [BMI] 26.0-26.9, adult; Z71.3 Dietary counseling and surveillance
CPT/HCPCS: 97802

== ENCOUNTER → 2024-01-10 12:39 | Outpatient (CLI) | payer OTHER, SELFPAY ==
--- NOTE | 2024-01-15 14:41 | DIET.OUTPTC ---
Dietary Outpatient Consultation Note Consultation Date: 01/10/2024 Nutrition f/u. 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 Pt dx w/ severe acute protein calorie malnutrition. Jacquie was unable to tolerate a plant based protein shake or powder made with pea and quinoa protein. Reports does not tolerate whey protein. Trial resulted in 7 incidences of emesis during the work day. Is able to tolerate liquid oatmeal and hamburger meat. Brother is bringing her bone broth today. Reports worsening taste, severe abdominal pain in the last 2 weeks lasting 1-24 hours. Suggested follow up with PCP. Diet recall: B- 200 kcal energy drink D- when home from work - after 10p- 3/4 can of soup remains up right until bed at 1:30a Total intake: 500-600 kcals Foods best tolerate fall along a minced and moist type diet w/ thinner liquids. Nutrition focused physical exam performed today (01/09), results remain consistent with last NFPE Muscle wasting: -Moderate loss temporalis -Mild loss clavicle and scapula region -Mild loss interosseous region Subcutaneous fat loss: -Moderate loss orbital fat pads -Mild loss buccal fat pads Ht: 4 ft 11 in (150 cm) Wt: 129 lb and 8 oz (58.74 kg) BMI: 26.2 Weight History: 12/05/23: 58.74 kg (9.4% weight loss in 3 months, severe) weight is stable per pt 09/05/23: 65.487 kg Labs: Vitamin D deficiency, taking supplement Nutrition Diagnosis: Severe Acute Protein Calorie Malnutrition r/t altercations of the GI tract as evidenced by mild to moderate muscle wasting (temporalis, deltoid, trapezius, pectoralis major, supraspinatus, infraspinatus, rhomboid muscles, interosseous) and mild to moderate subcutaneous fat loss (orbital and buccal fat pads), 9% weight loss in 3 months, severe, and <50% of estimated energy intake per diet recall for 4 months, severe. Interventions: 1. Increased energy-protein intake w/ food texture modifications for tolerance -Discussed: Consuming tolerated foods 3x/day, providing resource of additional protein based options to trial as able, results from NFPE Goals: 2. Oatmeal at breakfast. Trial of carnation essentials 3. Add hamburger or beans to soups made with protein based broths lunch and dinner, pack for lunch at work EER: [id number] kcals (MSJ x1.2-1.3) 75-85 g protein (1.25-1.5 g/kg per malnutrition) Monitoring/Evaluations: diet recall, weight, NFPE, labs Electronically Signed by: Temi Santacruz 01/15/24 14:41 Clinical Dietitian [address] [id number]
== END ==
PROVIDERS: PCP Family Medicine; Referring Provider Family Medicine
DX: K22.70 Barrett's esophagus without dysplasia (principal); R13.10 Dysphagia, unspecified; E43 Unspecified severe protein-calorie malnutrition; Z68.26 Body mass index [BMI] 26.0-26.9, adult; Z71.3 Dietary counseling and surveillance
CPT/HCPCS: 97803